=== PATIENT | female | born 1975 | race Caucasian/White ===

== ENCOUNTER → 2016-07-21 | Outpatient (CLI) | payer BC ==
[~2016-07-21] MED LIST: LISI20TA PO; PERC5TAB6 PO; ZOLO100T PO
[2016-07-21 16:55] LABS: BASO % 0.4 % (0.0-1.0); EOS # 0.2 K/mm3 (0.0-0.50); EOS % 2.6 % (0.0-3.0); LARGE UNSTAINED CELL # 0.1 K/mm3 (0.0-0.4); LARGE UNSTAINED CELL % 1.1 % (0.0-4.0); LYMPH # 2.1 K/mm3 (1.5-4.5); LYMPH % 27.8 % (24.0-44.0); MEAN CORPUSCULAR HGB CONC 33.9 g/dl (32.0-36.5); MEAN CORPUSCULAR VOLUME 88.4 fl (80.0-96.0); MONO # 0.3 K/mm3 (0.0-0.8); MONO % 3.7 % (0.0-5.0); NEUTROPHILS % 64.3 % (36.0-66.0); PLATELET COUNT, AUTOMATED 262 k/mm3 (150-450); RED CELL DISTRIBUTION WIDTH 12.8 % (11.5-14.5); WHITE BLOOD COUNT 7.7 K/mm3 (4.0-10.0)
[2016-07-21 17:01] LABS: ALBUMIN 3.5 GM/DL (3.2-5.2); ALBUMIN/GLOBULIN RATIO 0.97 (1.00-1.93); ALKALINE PHOSPHATASE 85 U/L (45-117); ALT/SGPT 18 U/L (12-78); ANION GAP 7 MEQ/L (8-16); AST/SGOT 16 U/L (15-37); BILIRUBIN,TOTAL 0.7 MG/DL (0.2-1.0); BLOOD UREA NITROGEN 20 MG/DL (7-18); CARBON DIOXIDE LEVEL 30 MEQ/L (21-32); CHLORIDE LEVEL 104 MEQ/L (98-107); CHOLESTEROL LEVEL 179 MG/DL (<200); FREE T4 1.13 NG/DL (0.76-1.46); GLOMERULAR FILTRATION RATE > 60.0 (>58); GLUCOSE, FASTING 74 MG/DL (70-105); SODIUM LEVEL 141 MEQ/L (136-145); TOTAL PROTEIN 7.1 GM/DL (6.4-8.2); TRIGLYCERIDES LEVEL 88 MG/DL (<150)
== END ==
LOC: M WUC 14:22
PROVIDERS: ATTEND Nurse Practitioner Family
DX: Z13.220 Encounter for screening for lipoid disorders (principal); I10 Essential (primary) hypertension; K21.9 Gastro-esophageal reflux disease without esophagitis

== ENCOUNTER → 2017-07-05 | Outpatient (CLI) | payer BC ==
[2017-07-05 15:11] LABS: BASO # 0.1 10^3/uL (0.0-0.2); BASO % 0.8 % (0.0-1.0); EOS # 0.3 10^3/uL (0.0-0.50); EOS % 5.3 % (0.0-3.0); HEMATOCRIT 39.3 % (36.0-47.0); HEMOGLOBIN 13.7 g/dl (12.0-16.0); IMMATURE GRANULOCYTE % 0.3 % (0-3.0); LYMPH # 1.6 10^3/uL (1.5-4.5); LYMPH % 27.3 % (24.0-44.0); MEAN CORPUSCULAR HEMOGLOBIN 31.1 pg (27.0-33.0); MEAN CORPUSCULAR HGB CONC 34.9 g/dl (32.0-36.5); MEAN CORPUSCULAR VOLUME 89.3 fl (80.0-96.0); MONO # 0.3 10^3/uL (0.0-0.8); MONO % 5.6 % (0.0-5.0); NEUTROPHILS # 3.6 10^3/uL (1.8-7.7); NEUTROPHILS % 60.7 % (36.0-66.0); PLATELET COUNT, AUTOMATED 244 10^3/uL (150-450); RED CELL DISTRIBUTION WIDTH 12.7 % (11.5-14.5); WHITE BLOOD COUNT 5.9 10^3/uL (4.0-10.0)
[2017-07-05 15:23] LABS: ALBUMIN 3.5 GM/DL (3.2-5.2); ALBUMIN/GLOBULIN RATIO 1.06 (1.00-1.93); ALKALINE PHOSPHATASE 74 U/L (45-117); ALT/SGPT 15 U/L (12-78); ANION GAP 7 MEQ/L (8-16); AST/SGOT 8 U/L (7-37); BILIRUBIN,TOTAL 0.3 MG/DL (0.2-1.0); BLOOD UREA NITROGEN 21 MG/DL (7-18); CALCIUM LEVEL 8.4 MG/DL (8.5-10.1); CARBON DIOXIDE LEVEL 26 MEQ/L (21-32); CHLORIDE LEVEL 110 MEQ/L (98-107); CHOLESTEROL LEVEL 143 MG/DL (<200); CHOLESTEROL RISK RATIO 3.108 (<5); CREATININE FOR GFR 0.81 MG/DL (0.55-1.30); GLOMERULAR FILTRATION RATE > 60.0 (>58); GLUCOSE, FASTING 78 MG/DL (70-100); HDL CHOLESTEROL 46 MG/DL (>40); LDL CHOLESTEROL 87.8 MG/DL (<100); NON-HDL-C 97 MG/DL; SODIUM LEVEL 143 MEQ/L (136-145); TOTAL PROTEIN 6.8 GM/DL (6.4-8.2); TRIGLYCERIDES LEVEL 46 MG/DL (<150)
== END ==
LOC: M WUC 11:21
DX: Z13.220 Encounter for screening for lipoid disorders (principal); I10 Essential (primary) hypertension; K21.9 Gastro-esophageal reflux disease without esophagitis
CPT/HCPCS: 80053

== ENCOUNTER → 2018-06-08 | Outpatient (CLI) | payer BC ==
[~2018-06-08] MED LIST changes: +PERC5TAB12 PO; -PERC5TAB6 PO
--- NOTE | 2018-06-08 10:51 | REP ---
CERVICAL SPINE, SEVEN VIEWS: HISTORY: Cervicalgia. The cervical spine is visualized from C1 to the C6-7 level in the lateral radiographs. There is no acute fracture or subluxation. The intervertebral discs are normal in height. The neural foramina are patent. IMPRESSION: There is no acute fracture or subluxation. Electronically Signed by Samuel Hernandez MD 06/08/2018 10:54 A
== END ==
LOC: M WUC 09:44
PROVIDERS: ATTEND Nurse Practitioner Family
DX: M54.2 Cervicalgia (principal)

== ENCOUNTER 2019-09-06 12:58 | Emergency (ER) | payer BC, SELFPAY ==
[~2019-09-06] VITALS: Ht 165.1 cm; Wt 84.1 kg
[~2019-09-06 12:58] MED LIST changes: -LISI20TA PO; +LISI20TA19 PO
[2019-09-06 12:59] VITALS: BP 145/83
[2019-09-06] MEDS ORDERED: ESCI20TA (13:05)
[2019-09-06] MEDS ORDERED: NAPR-837 PO ×2 (13:58→14:07)
--- NOTE | 2019-09-06 14:27 | REP ---
RIGHT KNEE, FIVE VIEWS: There is no evidence of an acute fracture, dislocation, or intrinsic bone disease. IMPRESSION: No fracture or dislocation. Electronically Signed by Ata Grubbs MD 09/06/2019 02:58 P
== END 2019-09-06 14:14 | disposition home or self-care (01) ==
LOC: EEVIPCON 12:58 → M ED 12:58
DX: S83.91XA Sprain of unspecified site of right knee, initial encounter (principal); X50.1XXA Overexertion from prolonged static or awkward postures, initial encounter; Y92.009 Unspecified place in unspecified non-institutional (private) residence as the place of occurrence of the external cause; I10 Essential (primary) hypertension; Z79.899 Other long term (current) drug therapy

== ENCOUNTER 2019-11-20 14:00 | Day surgery (SDC) | payer OTHER, SELFPAY ==
[~2019-11-20 14:00] MED LIST changes: +ESCI20TA; -LISI20TA19 PO; +LISI20TA35 PO; +MIDAZOLAM INJ 2MG/2ML VIAL (J2250 PER 1MG) As Ordered ONE; +NAPR-837 PO; +fentaNYL 100 MCG/2 ML INJECTION (J3010) As Ordered ONE
[2019-11-20] MEDS ORDERED: ROPIvacaine 0.5% 30ML INJECTION (J2795 PER 1MG) ONE (14:01)
[2019-11-20] MEDS ORDERED: EPINEPHrine INJ 1 MG/ML 1ML AMP ONE (14:01)
[2019-11-20] MEDS ORDERED: dexameTHASONE 10MG/1ML VIAL PRES.FREE (J1100 PER 1MG) ONE (14:01)
[2019-11-20] MEDS ORDERED: ceFAZolin 2 GM/D5W 50 ML IV BAG (J0690 PER 500MG) As Ordered ONE ×2 (14:02→20:03)
[2019-11-20] MEDS ORDERED: MIDAZOLAM INJ 2MG/2ML VIAL (J2250 PER 1MG) As Ordered ONE ×2 (14:19→16:38)
[2019-11-20] MEDS ORDERED: fentaNYL 100 MCG/2 ML INJECTION (J3010) As Ordered ONE ×4 (14:19→18:48)
[2019-11-20] MEDS ORDERED: ONDANSETRON 4MG/2ML VIAL As Ordered ONE (16:38)
[2019-11-20] MEDS ORDERED: propofoL 200 MG/20 ML VIAL As Ordered ONE ×2 (16:38→20:15)
[2019-11-20] MEDS ORDERED: LIDOCAINE 2% 100MG/5ML SDV (FOR ANES.) As Ordered ONE (16:38)
[2019-11-20] MEDS ORDERED: ROCURONIUM BROMIDE 50 MG/5 ML VIAL As Ordered ONE ×2 (16:38→18:23)
[2019-11-20] MEDS ORDERED: dexameTHASONE 4 MG/ML 1ML VIAL (J1100 PER 1MG) As Ordered ONE (16:38)
[2019-11-20] MEDS ORDERED: LABETALOL 100MG/20ML VIAL As Ordered ONE (16:39)
[2019-11-20] MEDS ORDERED: ACETAMINOPHEN 1000MG 100ML IV BTL (OFIRMEV) (J0131 PER 10MG) As Ordered ONE (16:43)
[2019-11-20] MEDS ORDERED: SUGAMMADEX SODIUM 500 MG/5 ML VIAL (BRIDION) As Ordered ONE (16:44)
[2019-11-20] MEDS ORDERED: KETOROLAC 60MG 2ML VIAL As Ordered ONE (16:44)
[2019-11-20] MEDS ORDERED: BUPIVACAINE HCL 0.5% 30 ML VIAL As Ordered ONE (20:25)
[2019-11-20] MEDS ORDERED: METOCLOPRAMIDE INJ 10MG/2ML VIAL (J2765 PER 1) As Ordered ONE (20:54)
[2019-11-20] MEDS ORDERED: oxyCODONE 5MG TAB As Ordered ONE (21:26)
--- NOTE | 2020-01-24 11:38 | RO ---
DATE OF OPERATION: 11/20/2019 PREOPERATIVE DIAGNOSES: * Right knee anterior cruciate ligament rupture. * Right knee medial collateral ligament tear. * Right knee lateral meniscus tear. * Right knee osteoarthritis. POSTOPERATIVE DIAGNOSES: * Right knee anterior cruciate ligament rupture. * Right knee medial collateral ligament tear. * Right knee lateral meniscus tear. * Right knee osteoarthritis. PROCEDURES: * Right knee arthroscopic-assisted anterior cruciate ligament reconstruction with Achilles Allograft. * Right knee open medial collateral ligament reconstruction with Allograft. * Right knee arthroscopic lateral meniscus repair and chondroplasty. SURGEON: Andres Perez M.D. HEATING AND AIR CONDITIONING MECHANIC: Colin Willson PA-C ANESTHESIA: General with preoperative nerve block. IV FLUIDS: Lactated ringers. ESTIMATED BLOOD LOSS: 50 mL. IMPLANTS: Arthrex 7 x 23 mm PEEK interference screw x2; Arthrex 10 x 28 mm PEEK interference screw x1; Arthrex 18 mm spiked washer; and Synthes 4.5 mm titanium cortical screw. CLOSURE: Nylon. DESCRIPTION OF PROCEDURE: Patient was identification in the preoperative holding area. The right leg was marked. She had a perioperative nerve block from anesthesia. She was brought to the operating room and placed supine on a well- padded OR table. General anesthesia was induced. Examination under anesthesia revealed grade 2+ laxity to valgus stress including significant laxity, but a present endpoint in full extension and significant laxity to valgus stress at 30 degrees with a soft endpoint. She had a grade 2B Keo. Pivot shift deferred. Negative posterior drawer. Grade 2+ lateral patellar translation with a good endpoint. She was stable to varus stress. A well-padded tourniquet applied to the right thigh. Venodyne boot on the left lower extremity for DVT prophylaxis. The right leg was then prepped and draped in a normal sterile fashion with ChloraPrep from the toes up to the tourniquet. She received appropriate antibiotics within one hour of incision. Time-out was performed per hospital protocol. Colin Willson PA-C was present for the entire procedure and participated in all essential portions of the procedure. His help was crucial for this complex case, including preparation of two Allograft, holding the knee during drilling of the anterior cruciate ligament (ACL) tunnels, holding the arthroscopic throughout the case, assisting with placement of screws, and passage of grafts. He also held retractors and stabilized the knee during the medial collateral ligament (MCL) reconstruction and assisted with the wound closure. The right leg was exsanguinated with an Esmarch bandage. The tourniquet inflated to 275 mmHg. An anterolateral portal was localized with a spinal needle and incision made with an 11-blade. A 30-degree arthroscope was introduced into the joint. Diagnostic arthroscopy carried out revealing diffuse synovitis and diffuse grade 2 borderline grade 3 chondromalacia of the patella. No exposed calcified cartilage. Grade 2 chondromalacia in the trochlea. Medial compartment was entered where there was diffuse grade 2 chondromalacia and no medial meniscus tearing. The posterior cruciate ligament (PCL) was covered with hypertrophied synovium, but no obvious tearing. The ACL was completely torn off the femur and was balled up on the tibia. With the leg in the [id number] position, there was diffuse grade 2 borderline grade 3 chondromalacia in the femoral condyle and grade 2 in the tibial plateau. There was a radial tear at the junction of the posterior horn and body of the lateral meniscus with the root still attached. An anteromedial portal was created under direct visualization and probing the medial meniscus, there were no tears. Probing of the lateral meniscus again confirmed this complex tear that appeared highly unstable and extended to the popliteus. Using the probe and shaver, some scar tissue was cleared off the posterior horn and root remnant to create a bleeding surface. A grasper was used to manipulate the body of the lateral meniscus and given that this was a radial tear, I felt that it required an attempt at a repair. The scorpion was used to pass 2-0 FiberWire through the posterior horn and then through the body. Using a knot pusher, arthroscopic knots were tied. Suture was cut with a blueprint cutter. The knee was taken through full range of motion and the repair failed. Sutures removed. I then used a new strand of 2-0 FiberWire passed twice through the posterior horn portion and in a luggage tag fashion. The other limb was passed with a scorpion through the body also in a luggage tag fashion. Now knots were tied using alternating half-inch technique and this nicely brought the meniscus edges together and compressed nicely. The knee was taken through full range of motion and there was no re-tearing, repair was stable. On the back table, my medical assistant secretary prepared two Achilles Allografts, one for the ACL and one for the MCL, and then the grafts were protected with a moist sponge. The shaver was then used to perform a chondroplasty to the patella and medial and lateral femoral condyles. The stump was debrided with a shaver. Cautery was used to clear soft tissue off the lateral femoral condyle notch. Hypertrophied synovium was cleared off the PCL and the PCL was noted to be intact. A curette was used to claudia the anatomic location for a single bundle ACL reconstruction on the lateral femoral condyle and then an 8-mm [id number] guide was used to advance a Beath pin out the lateral femoral condyle. A 10 mm low profile reamer was used to drill a socket 25 mm in depth. A shaver was used to meticulously remove all bony debris. FiberWire passing stitch was brought out through the Beath pin and tagged for lateral graft passage. There was excellent placement of this tunnel just off the articular surface and with a 3 mm back wall. The tibial drill guide was then used. A 3 cm incision made over the medial tibial plateau and blunt finger dissection down to periosteum. Tibial drill guide was used to advance the guidewire into the joint entering about 9 mm posterior to the intermeniscal ligament and just medial to the midline. A 10 mm improvement intern was used to drill a 10 mm tunnel. Soft tissue was cleared off at the aperture to help prevent a Cyclops lesion. The FiberWire passing stitch was retrieved out the tibial tunnel and the ACL Allograft was brought into the joint. The bone block was docked into the femoral tunnel. Nitinol wire was placed between the bone block and tunnel and then a 7 mm tap was placed and then a 7 x 23 PEEK screw was advanced over the Nitinol wire with the knee in hyperflexion. There was excellent fixation with that screw. I then proceeded with the MCL reconstruction. The incision was made with a 15- blade just posterior to the medial epicondyle. Dissection with cautery and Metzenbaum scissors down to the deep fascia. Beath pin was placed on power just proximal and posterior to the medial epicondyle. Appropriate positioning confirmed on AP and lateral views with the large C-arm. Prior to drilling the socket, a suture was passed around the Beath pin and brought out through the tibial incision. I had undermined the subcutaneous tissues to create a path for the MCL graft. The isometry point was identified by placing the sutures against the posterior border of the medial tibial plateau and the knee was brought the range of motion and no change in suture length. This was marked with cautery. I then reamed with a 10 mm acorn reamer and then the MCL Achilles allograft. The bone block was docked into that tunnel and a 7 x 23 PEEK interference screw was placed over the Nitinol wire with excellent fixation. The knee was brought up onto the OR table. Large bumps placed behind the femoral condyles. Nitinol wire placed between the soft tissue portion of the ACL graft and the tunnel and a 10 x 28 PEEK interference screw was placed over the Nitinol wire as my medical assistant secretary applied a posterior drawer to the proximal tibia and I applied distal traction on the sutures. There was excellent fixation with that screw. There was a grade 1A Keo. The knee was brought through range of motion 0 to 120 degrees and there was no change in the Keo. Patient had no improvement with stability to valgus stress testing. Excess graft was cut and discarded. Then a 3.2 drill bit was used to drill for a cortical screw at the medial tibial plateau. Position confirmed on a large C-arm and this was bicortical. The Achilles Allograft was pierced with the screw and then I advanced this titanium 4.5 cortical screw 50 mm in length fully threaded with the 18 mm titanium spiked wash as the soils technician applied a varus force to the knee and the knee was in 20 degrees of flexion. My starch treating assistant maintained proper orientation of the spiked washer and the screw was advanced bicortically with excellent fixation. Bicortical fixation was confirmed on AP and lateral views with the large C-arm. The knee was re-examined and there was still a grade 1A Keo. The patient was now stable to valgus stress in full extension and grade 1 laxity to valgus stress at 30 degrees. The graft was under tension on palpation. Excess graft was trimmed and discarded. Arthroscope was placed back into the joint. The ACL graft was probed and found to be under good tension. The lateral meniscus repair was inspected. The edges of the tear were still approximated. The joint was irrigated. All incisions were extensively irrigated. Incisions were closed with 2-0 Vicryl followed by a running nylon. I injected 20 mL of 0.5% Marcaine without epinephrine. Tourniquet was let down with excellent reperfusion. Antibiotics were re-dosed at the four hour claudia. Total tourniquet time was 2 hours 30 minutes. Bulky sterile dressing was applied. She was then placed into a hinged knee brace locked in extension. She had 2+ DP and PT pulses. She was extubated and transferred to the post anesthesia care unit (PACU) in stable condition firing EHL, FHL, TA, and GS. Sensation to light touch grossly intact. She will be toe-touch weightbearing for the first four weeks. Physical therapy starting in 10-14 days. MTDD
== END 2019-11-20 22:45 | disposition home or self-care (01) ==
LOC: M SDC 14:00
PROVIDERS: ATTEND Orthopaedic Surgery
DX: S83.511A Sprain of anterior cruciate ligament of right knee, initial encounter (principal); S83.411A Sprain of medial collateral ligament of right knee, initial encounter; S83.281A Other tear of lateral meniscus, current injury, right knee, initial encounter; M17.11 Unilateral primary osteoarthritis, right knee; I10 Essential (primary) hypertension; F41.9 Anxiety disorder, unspecified; F32.9 Major depressive disorder, single episode, unspecified; Z79.899 Other long term (current) drug therapy; X58.XXXA Exposure to other specified factors, initial encounter; Y92.89 Other specified places as the place of occurrence of the external cause; Y93.9 Activity, unspecified; Y99.9 Unspecified external cause status
CPT/HCPCS: 27428; 29882; 64447; 76000; C1713; C1762; J0131; J0171; J0690; J1100; J1885; J2250; J2405; J2765; J2795; J3010

== ENCOUNTER → 2020-12-30 | Outpatient (REF) | payer OTHER ==
[~2020-12-30] MED LIST changes: -ESCI20TA; +ESCI20TA16; -MIDAZOLAM INJ 2MG/2ML VIAL (J2250 PER 1MG) As Ordered ONE; -fentaNYL 100 MCG/2 ML INJECTION (J3010) As Ordered ONE
[2020-12-30 12:52] LABS: ALT/SGPT 30 U/L (12-78); BILIRUBIN,TOTAL 0.5 MG/DL (0.2-1.0); BLOOD UREA NITROGEN 21 MG/DL (7-18); CALCIUM LEVEL 8.6 MG/DL (8.5-10.1); CARBON DIOXIDE LEVEL 24 MEQ/L (21-32); CHLORIDE LEVEL 107 MEQ/L (98-107); CREATININE FOR GFR 0.78 MG/DL (0.55-1.30); GLOMERULAR FILTRATION RATE > 60.0 (>58); GLUCOSE, FASTING 87 MG/DL (70-100); POTASSIUM SERUM 4.4 MEQ/L (3.5-5.1); SODIUM LEVEL 140 MEQ/L (136-145)
[2020-12-30 12:53] LABS: ALBUMIN 3.3 GM/DL (3.2-5.2); CHOLESTEROL LEVEL 163 MG/DL (<200); CHOLESTEROL RISK RATIO 3.134 (<5); FREE T4 1.14 NG/DL (0.76-1.46); HDL CHOLESTEROL 52 MG/DL (>40); LDL CHOLESTEROL 93 MG/DL (<100); NON-HDL-C 111 MG/DL; TOTAL PROTEIN 6.8 GM/DL (6.4-8.2); TRIGLYCERIDES LEVEL 89 MG/DL (<150)
== END ==
LOC: M SFHCCLAY 07:33
PROVIDERS: ATTEND Nurse Practitioner Family
DX: R63.5 Abnormal weight gain (principal); I10 Essential (primary) hypertension; Z13.1 Encounter for screening for diabetes mellitus; F41.9 Anxiety disorder, unspecified; Z83.3 Family history of diabetes mellitus

== ENCOUNTER → 2021-02-05 | Outpatient (REF) | payer OTHER | LOC: M SFHCCLAY 08:16 | PROVIDERS: ATTEND Nurse Practitioner Family | DX: Z01.419 Encounter for gynecological examination (general) (routine) without abnormal findings (principal) ==

== ENCOUNTER → 2021-02-24 | Outpatient (REF) | payer OTHER | LOC: M SFHCCLAY 13:00 | PROVIDERS: ATTEND Physician Assistant | DX: R35.0 Frequency of micturition (principal); R10.2 Pelvic and perineal pain ==

== ENCOUNTER 2021-09-15 13:32 | Emergency (ER) | payer OTHER ==
[~2021-09-15] VITALS: Ht 165.1 cm; Wt 86.4 kg
[2021-09-15 19:01] VITALS: BP 180/98
== END 2021-09-15 19:05 | disposition home or self-care (01) ==
LOC: M ED 13:32
DX: M65.232 Calcific tendinitis, left forearm (principal); I10 Essential (primary) hypertension; Z79.899 Other long term (current) drug therapy

== ENCOUNTER → 2021-10-20 | Outpatient (REF) | payer OTHER ==
[2021-10-20 12:27] LABS: ALBUMIN 3.2 GM/DL (3.2-5.2); ALT/SGPT 21 U/L (12-78); BILIRUBIN,TOTAL 0.3 MG/DL (0.2-1.0); BLOOD UREA NITROGEN 21 MG/DL (7-18); CARBON DIOXIDE LEVEL 27 MEQ/L (21-32); CHLORIDE LEVEL 106 MEQ/L (98-107); CREATININE FOR GFR 0.99 MG/DL (0.55-1.30); GLOMERULAR FILTRATION RATE > 60.0 (>58); GLUCOSE, FASTING 105 MG/DL (70-100); POTASSIUM SERUM 3.6 MEQ/L (3.5-5.1); SODIUM LEVEL 141 MEQ/L (136-145); TOTAL PROTEIN 6.7 GM/DL (6.4-8.2)
== END ==
LOC: M SFHCCLAY 08:28
PROVIDERS: ATTEND Nurse Practitioner Family
DX: I10 Essential (primary) hypertension (principal)

== ENCOUNTER → 2021-12-15 | Outpatient (CLI) | payer OTHER | LOC: M SOG 10:32 | PROVIDERS: ATTEND Orthopaedic Surgery Hand Surgery | DX: M25.532 Pain in left wrist (principal) ==

== ENCOUNTER → 2022-01-06 | Outpatient (REF) | payer OTHER | LOC: M SFHCCLAY 15:18 | PROVIDERS: ATTEND Nurse Practitioner Family | DX: R33.9 Retention of urine, unspecified (principal) ==

== ENCOUNTER → 2022-12-21 | Day surgery (SDC) | payer OTHER ==
[~2022-12-21] VITALS: Ht 165.1 cm; Wt 90.3 kg
[~2022-12-21] MED LIST changes: +BUPR-365 PO; +CHLO125TA PO; +DICY20TA20 PO; +FAMO40TA3 PO; +NS 1,000 ML IV ONE; +OMEP-173 PO
[2022-12-21 10:50] VITALS: TEMP 98.6
[2022-12-21 11:05] VITALS: BP 142/95; O2SAT 98
== END | disposition home or self-care (01) ==
LOC: M OPP 09:09
PROVIDERS: ATTEND Internal Medicine Gastroenterology
DX: K58.0 Irritable bowel syndrome with diarrhea (principal); K30 Functional dyspepsia; R13.10 Dysphagia, unspecified; Z79.83 Long term (current) use of bisphosphonates; Z79.891 Long term (current) use of opiate analgesic; Z79.899 Other long term (current) drug therapy

== ENCOUNTER → 2023-03-21 | Outpatient (REF) | payer OTHER ==
[~2023-03-21] MED LIST changes: -NS 1,000 ML IV ONE
[2023-03-21 13:56] LABS: BASO # 0.1 10^3/uL (0.0-0.2); EOS # 0.3 10^3/uL (0.0-0.5); EOS % 4.6 % (0.0-3.0); HEMATOCRIT 42.1 % (36.0-47.0); HEMOGLOBIN 14.4 g/dl (12.0-15.5); LYMPH # 1.9 10^3/uL (1.5-5.0); LYMPH % 25.7 % (24.0-44.0); MEAN CORPUSCULAR HEMOGLOBIN 30.6 pg (27.0-33.0); MEAN CORPUSCULAR HGB CONC 34.2 g/dl (32.0-36.5); MEAN CORPUSCULAR VOLUME 89.4 fl (80.0-96.0); MONO # 0.4 10^3/uL (0.0-0.8); MONO % 5.9 % (2.0-8.0); NEUTROPHILS # 4.6 10^3/uL (1.5-8.5); NEUTROPHILS % 62.4 % (36.0-66.0); PLATELET COUNT, AUTOMATED 278 10^3/uL (150-450); RED BLOOD COUNT 4.71 10^6/uL (4.00-5.40); WHITE BLOOD COUNT 7.4 10^3/uL (4.0-10.0)
[2023-03-21 15:22] LABS: ALBUMIN 3.3 G/DL (3.2-5.2); ALKALINE PHOSPHATASE 73 U/L (46-116); ALT/SGPT 33 U/L (7.0-40); AST/SGOT 18 U/L (<34); BILIRUBIN,TOTAL 0.3 MG/DL (0.3-1.2); BLOOD UREA NITROGEN 26 MG/DL (9-23); CALCIUM LEVEL 8.7 MG/DL (8.5-10.1); CARBON DIOXIDE LEVEL 30 MMOL/L (20-31); CHLORIDE LEVEL 102 MMOL/L (98-107); CHOLESTEROL LEVEL 193 MG/DL (<200); CREATININE FOR GFR 0.91 MG/DL (0.55-1.30); FREE T4 1.09 NG/DL (0.89-1.76); GLOMERULAR FILTRATION RATE > 60.0 (>58); GLUCOSE, FASTING 115 MG/DL (60-100); POTASSIUM SERUM 3.2 MMOL/L (3.5-5.1); SODIUM LEVEL 139 MMOL/L (136-145); THYROID STIMULATING HORMONE 1.135 uIU/ML (0.55-4.78); TOTAL PROTEIN 6.7 G/DL (5.7-8.2); TRIGLYCERIDES LEVEL 210 MG/DL (<150)
[2023-03-21 16:35] LABS: CHOLESTEROL RISK RATIO 4.55 (<5); HDL CHOLESTEROL 42.4 MG/DL (>40); LDL CHOLESTEROL 108.6 MG/DL (<100); NON-HDL-C 150.6 MG/DL
== END ==
LOC: M SFHCCLAY 08:27
PROVIDERS: ATTEND Nurse Practitioner Family
DX: I10 Essential (primary) hypertension (principal)

== ENCOUNTER → 2023-04-15 | Outpatient (CLI) | payer OTHER | LOC: M SOG 07:55 | PROVIDERS: ATTEND Orthopaedic Surgery Hand Surgery | DX: M51.36 Other intervertebral disc degeneration, lumbar region (principal); M54.50 Low back pain, unspecified ==

== ENCOUNTER 2023-04-20 09:32 | Outpatient (RCR) | payer OTHER ==
[2023-04-24] MEDS ORDERED: GABA-282 PO (10:40)
[2023-04-24] MEDS ORDERED: CYCL-707 PO (10:40)
[2023-04-24] MEDS ORDERED: LORA-1041 PO (10:40)
[2023-04-24] MEDS ORDERED: NAPR-885 PO (10:40)
[2023-04-24] MEDS ORDERED: OXYC1TAB23 PO (10:40)
[2023-04-24] MEDS ORDERED: POTA1TAB23 PO (10:40)
== END 2023-05-18 ==
LOC: M PT 09:32
PROVIDERS: ATTEND Physician Assistant
DX: M54.50 Low back pain, unspecified (principal)

== ENCOUNTER 2023-04-23 15:41 | Emergency (ER) | payer OTHER ==
[~2023-04-23] VITALS: Ht 165.1 cm; Wt 95.7 kg
[2023-04-23 20:30] LABS: BASO # 0.1 10^3/uL (0.0-0.2); BASO % 0.6 % (0.0-1.0); EOS # 0.3 10^3/uL (0.0-0.5); EOS % 2.6 % (0.0-3.0); HEMATOCRIT 41.1 % (36.0-47.0); HEMOGLOBIN 14.3 g/dl (12.0-15.5); LYMPH # 2.4 10^3/uL (1.5-5.0); LYMPH % 22.8 % (24.0-44.0); MEAN CORPUSCULAR HEMOGLOBIN 30.9 pg (27.0-33.0); MEAN CORPUSCULAR HGB CONC 34.8 g/dl (32.0-36.5); MEAN CORPUSCULAR VOLUME 88.8 fl (80.0-96.0); MONO # 0.6 10^3/uL (0.0-0.8); MONO % 5.4 % (2.0-8.0); NEUTROPHILS # 7.2 10^3/uL (1.5-8.5); NEUTROPHILS % 68.2 % (36.0-66.0); PLATELET COUNT, AUTOMATED 267 10^3/uL (150-450); RED BLOOD COUNT 4.63 10^6/uL (4.00-5.40); WHITE BLOOD COUNT 10.5 10^3/uL (4.0-10.0)
[2023-04-24] MEDS ORDERED: methylPREDNISolone 125MG 2ML VIAL IV ONE
[2023-04-24] MEDS ORDERED: methocarbamoL 500 MG TAB PO ONE
[2023-04-24] MEDS ORDERED: KETOROLAC 30 MG/ML 1ML VIAL IV ONE
[2023-04-24] MEDS ORDERED: LORATADINE 10 MG TAB PO ONE (08:20)
[2023-04-24] MEDS ORDERED: CHLORTHALIDONE 25 MG TAB PO ONE (08:20)
[2023-04-24] MEDS ORDERED: OMEPRAZOLE 20MG CAP PO ONE (08:20)
[2023-04-24] MEDS ORDERED: buPROPion **XL** TABLET 150MG (WELLBUTRIN XL) PO ONE (09:00)
[2023-04-24] MEDS ORDERED: MED REC IN PROGRESS XX SCH (09:00)
[2023-04-24] MEDS ORDERED: POTA1TAB23 PO (10:40)
[2023-04-24] MEDS ORDERED: OXYC1TAB23 PO (10:40)
[2023-04-24] MEDS ORDERED: LORA-1041 PO (10:40)
[2023-04-24] MEDS ORDERED: NAPR-885 PO (10:40)
[2023-04-24] MEDS ORDERED: CYCL-707 PO (10:40)
[2023-04-24] MEDS ORDERED: GABA-282 PO (10:40)
[2023-04-24] MEDS ORDERED: HOME MED LIST COMPLETE! XX SCH (10:45)
[2023-04-24 14:21] VITALS: BP 145/91; TEMP 98.5; O2SAT 96
== END 2023-04-24 14:23 | disposition short-term general hospital (02) ==
LOC: M ED 15:41
DX: M51.86 Other intervertebral disc disorders, lumbar region (principal); I10 Essential (primary) hypertension; Z79.811 Long term (current) use of aromatase inhibitors; Z79.810 Long term (current) use of selective estrogen receptor modulators (SERMs); Z79.899 Other long term (current) drug therapy
CPT/HCPCS: 72148; 80047; 81001; 85025; 87635; 96374; 96375; 99284; J1885; J2930

== ENCOUNTER → 2023-07-20 | Outpatient (REF) | payer OTHER ==
[~2023-07-20] MED LIST changes: +CYCL-707 PO; +GABA-282 PO; +LORA-1041 PO; +NAPR-885 PO; +OXYC1TAB23 PO; +POTA1TAB23 PO
== END ==
LOC: M SFHCCLAY 15:41
PROVIDERS: ATTEND Nurse Practitioner Family
DX: J02.9 Acute pharyngitis, unspecified (principal)

== ENCOUNTER → 2024-04-12 | Outpatient (REF) | payer BC, OTHER, SELFPAY ==
[~2024-04-12] MED LIST changes: +GABA-1172 PO; -GABA-282 PO
== END ==
LOC: M LAB REF 16:23
PROVIDERS: ATTEND Physician Assistant Medical
DX: B34.9 Viral infection, unspecified (principal)

== ENCOUNTER → 2024-05-23 | Outpatient (REF) | payer OTHER ==
[2024-05-23 18:16] LABS: BASO # 0.1 10^3/uL (0.0-0.2); BASO % 1.1 % (0.0-1.0); EOS # 0.3 10^3/uL (0.0-0.5); EOS % 3.4 % (0.0-3.0); HEMATOCRIT 44.5 % (36.0-47.0); LYMPH # 2.6 10^3/uL (1.5-5.0); LYMPH % 31.3 % (24.0-44.0); MEAN CORPUSCULAR HEMOGLOBIN 29.5 pg (27.0-33.0); MEAN CORPUSCULAR HGB CONC 33.7 g/dl (32.0-36.5); MEAN CORPUSCULAR VOLUME 87.6 fl (80.0-96.0); MONO # 0.6 10^3/uL (0.0-0.8); MONO % 6.5 % (2.0-8.0); NEUTROPHILS # 4.8 10^3/uL (1.5-8.5); NEUTROPHILS % 57.5 % (36.0-66.0); PLATELET COUNT, AUTOMATED 319 10^3/uL (150-450); RED BLOOD COUNT 5.08 10^6/uL (4.00-5.40); WHITE BLOOD COUNT 8.4 10^3/uL (4.0-10.0)
[2024-05-23 18:37] LABS: ALBUMIN 3.6 G/DL (3.2-5.2); ALKALINE PHOSPHATASE 87 U/L (35-104); ALT/SGPT 29 U/L (7.0-40); AST/SGOT 26 U/L (<34); BILIRUBIN,TOTAL 0.5 MG/DL (0.3-1.2); BLOOD UREA NITROGEN 27 MG/DL (9-23); CALCIUM LEVEL 9.7 MG/DL (8.5-10.1); CARBON DIOXIDE LEVEL 34 MMOL/L (20-31); CHLORIDE LEVEL 100 MMOL/L (98-107); CHOLESTEROL LEVEL 242 MG/DL (<200); CHOLESTEROL RISK RATIO 4.54 (<5); CREATININE FOR GFR 0.96 MG/DL (0.55-1.30); FREE T4 1.36 NG/DL (0.89-1.76); GLOMERULAR FILTRATION RATE > 60.0 (>58); GLUCOSE, FASTING 70 MG/DL (60-100); HDL CHOLESTEROL 53.3 MG/DL (>40); LDL CHOLESTEROL 155.5 MG/DL (<100); MAGNESIUM LEVEL 1.8 MG/DL (1.8-2.4); NON-HDL-C 188.7 MG/DL; POTASSIUM SERUM 3.3 MMOL/L (3.5-5.1); SODIUM LEVEL 143 MMOL/L (136-145); THYROID STIMULATING HORMONE 1.704 uIU/ML (0.55-4.78); TOTAL PROTEIN 7.4 G/DL (5.7-8.2); TRIGLYCERIDES LEVEL 166 MG/DL (<150)
[2024-05-23 19:13] LABS: HEMOGLOBIN A1c 5.3 % (4.0-6.0)
== END ==
LOC: M SFHCCLAY 13:55
PROVIDERS: ATTEND Nurse Practitioner Family
DX: I10 Essential (primary) hypertension (principal); Z13.1 Encounter for screening for diabetes mellitus

== ENCOUNTER → 2024-06-27 | Outpatient (REF) | payer OTHER ==
[2024-06-30 13:01] LABS: HPV APTIMA Detected (Not Detected)
== END ==
LOC: M SFHCCLAY 17:18
PROVIDERS: ATTEND Nurse Practitioner Family
DX: Z12.4 Encounter for screening for malignant neoplasm of cervix (principal)
CPT/HCPCS: 87624; G0123

== ENCOUNTER → 2024-08-13 | Outpatient (CLI) | payer OTHER | LOC: M CARPUL 12:13 | PROVIDERS: ATTEND Nurse Practitioner Family | DX: I10 Essential (primary) hypertension (principal); I35.8 Other nonrheumatic aortic valve disorders ==